=== PATIENT | male | born 1980 | race Caucasian/White ===

== ENCOUNTER 2025-07-01 10:11 | Emergency (ER) | payer OTHER ==
[~2025-07-01] VITALS: Ht 185.4 cm; Wt 68.6 kg
[2025-07-01 10:13] VITALS: BP 125/87; TEMP 98.3
[2025-07-01] MEDS ORDERED: DARU1TAB3 PO ×2 (11:18→11:19)
--- NOTE | 2025-07-01 11:20 | Physician Documentation ---
History of Present Illness ~ Chief Complaint: Cold, cough & congestion Stated Complaint: MULTIPLE MED COMPLAINTS Time Seen by MD: 11:16 HPI 45-year-old male who is an HIV patient presents for a medication refill on of his HIV medications. Says that he has been out five days. He has he has some residual cold cough congestion symptoms but primary reason for presenting to the ED is a medication refill states [place] is from out [place] the [place] and UTI in his now moved to [place] Day of Onset: Jul 01, 2025 Medication Reconciliation Allergies: Coded Allergies: No Known Allergies (Unverified , 07/01/25) Scheduled Darunavir/Cob/Emtri/Tenof Alaf (Symtuza [id number] mg Tab), 1 TAB PO DAILY Review of Systems All Other Systems at this time: Reviewed and Negative ROS As stated above in the HPI, otherwise all systems are reviewed and negative. Physical Exam Vital Signs: Temperature: 98.3, Source: Oral, Heart Rate: 97, Respiratory Rate: 16, BP: 125/87, Pulse Oximetry: 99, Weight: 68.600 Oxygen Flow Rate: 0 Physical Exam General: Alert, no apparent distress. HEENT: PERRL, EOMI, no injection, moist mucous membranes. Neck: Full range of motion. Respiratory: Lungs clear, no respiratory distress. Chest: No accessory muscle use. Cardiovascular: Regular rate and rhythm, no murmurs. Gastrointestinal: Soft, nontender, nondistended. Bowels sounds present. Extremities: Normal range of motion, no deformity. Neurologic: Oriented x4. Psychiatric: Normal mood and affect. Skin: Normal color, warm and dry. No edema, no ecchymosis. Progress Results/Orders Results/Orders Vital Signs 07/01/25 07/01/25 10:13 11:29 Temp 98.3 Pulse 97 98 Resp 16 16 B/P (MAP) 125/87 Pulse Ox 99 98 O2 Flow Rate 0 Medical Decision Making Additional information obtaine: old records Findings Patient's refilled as requested patient does not present in any acute distress in his nontoxic appearing Differential Dx:Considerations: Include: Allergic rhinitis, Influenza, Otitis media, Peritonsillar abscess, Pharyngitis-Diphtheria, Pharyngitis-Streptoccal, Pharyngitis-Viral, Pneumonia, Pnuemonitis, Sinusitis, URI, Other Departure Impression: Primary Impression: Cough Additional Impression: HIV (human immunodeficiency virus infection) Condition: Stable Discharge Instructions: Cough, Adult Referrals: NO PRIMARY CARE PROVIDER (PCP) Prescriptions Darunavir/Cob/Emtri/Tenof Alaf (Symtuza [phone] mg Tab) 800 Mg-150 Mg-200 Mg-10 Mg Tablet 1 TAB PO DAILY for 30 Days, #30 TAB Prov: TAVON GUTIÉRREZ [employer] 07/01/25 Signature Scribe Signature: gf Attestation: Scribed for Tavon Gutiérrez Programs Manager by Tavon Gutiérrez - ZAKIA . 07/01/25 18:12 TAVON GUTIÉRREZ NP Jul 01, 2025 11:20
[2025-07-01 11:29] VITALS: PULSE 98; RESP 16; O2SAT 98
== END 2025-07-01 11:33 | disposition home or self-care (01) ==
LOC: ER 10:12
DX: R05.9 Cough, unspecified (principal); Z76.0 Encounter for issue of repeat prescription; Z79.899 Other long term (current) drug therapy
CPT/HCPCS: 99282; 99283

== ENCOUNTER 2025-07-12 10:38 | Emergency (ER) | payer SELFPAY ==
[~2025-07-12] VITALS: Ht 180.3 cm; Wt 67.2 kg
[~2025-07-12 10:38] MED LIST: DARU1TAB3 PO
[2025-07-12 10:40] VITALS: BP 113/75; PULSE 88; RESP 16; TEMP 98.2; O2SAT 98
== END 2025-07-12 12:48 | disposition left against medical advice (07) ==
LOC: ER 10:38
DX: L30.9 Dermatitis, unspecified (principal); Z76.0 Encounter for issue of repeat prescription; Z53.21 Procedure and treatment not carried out due to patient leaving prior to being seen by health care provider
CPT/HCPCS: 99281